=== PATIENT | male | born 1955 | race Caucasian/White ===

== ENCOUNTER 2020-07-23 11:40 | Inpatient (IN) | payer OTHER ==
[~2020-07-23] VITALS: Ht 175.3 cm; Wt 84.4 kg
[2020-07-23 12:44] LABS: HEMOGLOBIN 16.3 gm/dl (14.0-17.5); RED BLOOD COUNT 5.23 M/UL (4.20-5.50); WHITE BLOOD COUNT 7.5 K/UL (4.5-11.0)
[2020-07-23 13:18] LABS: BUN/CREATININE RATIO 14 (0-10)
[2020-07-23] MEDS ORDERED: MONTELUKAST SOD10 MG PO (14:32)
[2020-07-23] MEDS ORDERED: TAMSULOSIN HCL0.4 MG PO (14:35)
[2020-07-23] MEDS ORDERED: LASIX 40 MG TAB40 MG PO (14:35)
[2020-07-23] MEDS ORDERED: NITROGLYCERIN0.4 MG SL (14:35)
[2020-07-23] MEDS ORDERED: CHANTIX1 MG PO (14:38)
[2020-07-23] MEDS ORDERED: PRILOSEC OTC20 MG PO (17:12)
[2020-07-23] MEDS ORDERED: ASPIRIN81 MG PO (17:12)
[2020-07-23] MEDS ORDERED: LOPRESSOR 25 MG25 MG PO (17:54)
[2020-07-23] MEDS ORDERED: ATORVASTATIN CA20 MG PO (17:54)
--- NOTE | 2020-07-23 18:28 | NUR ---
REPORT CALLED TO DAVE [address]
== END 2020-07-23 22:30 | DRG 280 ==
LOC: ER1 11:40 → CDU 14:15 → PROG CARE 16:49
PROVIDERS: Physician Assistant Medical; ADMIT Family Medicine
PROC: 4A023N7 Measurement of Cardiac Sampling and Pressure, Left Heart, Percutaneous Approach (ICD-10-PCS; principal; 2020-07-23)
PROC: B2111ZZ Fluoroscopy of Multiple Coronary Arteries using Low Osmolar Contrast (ICD-10-PCS; 2020-07-23)
DX: I21.4 Non-ST elevation (NSTEMI) myocardial infarction (principal); I50.23 Acute on chronic systolic (congestive) heart failure; I42.8 Other cardiomyopathies; F17.210 Nicotine dependence, cigarettes, uncomplicated; N40.0 Benign prostatic hyperplasia without lower urinary tract symptoms; I08.0 Rheumatic disorders of both mitral and aortic valves; Z20.822 Contact with and (suspected) exposure to COVID-19; Z90.49 Acquired absence of other specified parts of digestive tract; Z88.0 Allergy status to penicillin; Z82.49 Family history of ischemic heart disease and other diseases of the circulatory system
CPT/HCPCS: 36415; 71045; 80053; 80061; 82550; 82553; 83036; 83874; 83880; 84484; 85025; 85610; 93005; 99285; C1769; C1887; C1894; J0583; J1644; J1940; J2060; J7040; Q9967; U0002

== ENCOUNTER → 2020-08-23 | Outpatient (CLI) | payer OTHER ==
[~2020-08-23] MED LIST: ASPIRIN81 MG PO; ATORVASTATIN CA20 MG PO; CHANTIX1 MG PO; LASIX 40 MG TAB40 MG PO; LOPRESSOR 25 MG25 MG PO; MONTELUKAST SOD10 MG PO; NITROGLYCERIN0.4 MG SL; PRILOSEC OTC20 MG PO; TAMSULOSIN HCL0.4 MG PO
== END ==
LOC: HEART 5 10:24
DX: J44.9 Chronic obstructive pulmonary disease, unspecified (principal); R06.02 Shortness of breath
CPT/HCPCS: 94060; 94729

== ENCOUNTER 2020-10-18 13:17 | Emergency (ER) | payer OTHER ==
[2020-10-18 14:04] LABS: RED BLOOD COUNT 4.27 M/UL (4.20-5.50); WHITE BLOOD COUNT 8.4 K/UL (4.5-11.0)
[2020-10-18 14:53] LABS: BUN/CREATININE RATIO 11 (0-10)
== END 2020-10-18 19:00 | disposition home or self-care (01) ==
LOC: ER1 13:17
PROVIDERS: Physician Assistant
DX: R06.02 Shortness of breath (principal); R77.8 Other specified abnormalities of plasma proteins; I11.0 Hypertensive heart disease with heart failure; I50.9 Heart failure, unspecified; J44.9 Chronic obstructive pulmonary disease, unspecified; Z88.0 Allergy status to penicillin
CPT/HCPCS: 70450; 71045; 80053; 82550; 82553; 83690; 83735; 83874; 83880; 84439; 84443; 84484; 85025; 85610; 85730; 93005; 99285

== ENCOUNTER → 2021-01-07 | Outpatient (CLI) | payer MEDICARE, OTHER | LOC: EXRD 01-06 08:00 | DX: M79.604 Pain in right leg (principal); M79.605 Pain in left leg; S93.106A Unspecified dislocation of unspecified toe(s), initial encounter | CPT/HCPCS: 93922; 93925 ==

== ENCOUNTER 2021-01-14 11:52 | Emergency (ER) | payer MEDICARE, OTHER ==
[~2021-01-14] VITALS: Ht 180.3 cm; Wt 88.5 kg
[2021-01-14 13:06] LABS: HEMOGLOBIN 12.9 gm/dl (14.0-17.5); RED BLOOD COUNT 4.3 M/UL (4.20-5.50); WHITE BLOOD COUNT 9.6 K/UL (4.5-11.0)
== END 2021-01-15 01:55 | disposition short-term general hospital (02) ==
LOC: ER1 11:52
PROVIDERS: Nurse Practitioner
DX: I11.0 Hypertensive heart disease with heart failure (principal); I50.9 Heart failure, unspecified; I25.2 Old myocardial infarction; E11.9 Type 2 diabetes mellitus without complications; J44.9 Chronic obstructive pulmonary disease, unspecified; Z90.49 Acquired absence of other specified parts of digestive tract; Z88.0 Allergy status to penicillin; Z79.84 Long term (current) use of oral hypoglycemic drugs; Z79.899 Other long term (current) drug therapy
CPT/HCPCS: 71045; 75635; 80053; 81001; 82550; 82553; 83605; 83874; 84484; 85025; 85379; 85610; 85730; 87040; 93005; 96374; 96375; 99285; J1644; J2270; J7030; Q9967; U0002

== ENCOUNTER → 2021-02-07 | Outpatient (CLI) | payer MEDICARE, OTHER | LOC: HEART 5 15:01 | DX: I35.0 Nonrheumatic aortic (valve) stenosis (principal) | CPT/HCPCS: 93306 ==